=== PATIENT | male | born 1980 | race Caucasian/White ===

== ENCOUNTER 2018-09-23 00:47 | Emergency (ER) | payer SELFPAY ==
[~2018-09-23] VITALS: Ht 172.7 cm; Wt 68.0 kg
--- NOTE | 2018-09-23 00:52 | NUR ---
ED Nurse Note: pt brought in by [employer], pt is in custody, pt is uncooperative, pt refuses to diclose allergies, pt refuses to have vital signs taken
--- NOTE | 2018-09-23 00:53 | NUR ---
ED Nurse Note: pt is stating that nothing is wrong with him and he doesnt know why [employer] brought him
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
--- NOTE | 2018-09-23 01:03 | NUR ---
ED Nurse Note: pt was medically cleared per ermd, pt has no stated complaints, and is still refusing to let staff take vital signs. pt was offered water per his request. pt is still uncooperative [employer] escorted pt at discharge.
== END 2018-09-23 01:02 ==
LOC: EMR 01:01
DX: S00.81XA Abrasion of other part of head, initial encounter (principal); Y04.8XXA Assault by other bodily force, initial encounter
CPT/HCPCS: 99282